=== PATIENT | male | born 1970 | race Caucasian/White ===

== ENCOUNTER 2019-06-18 05:17 | Day surgery (SDC) | payer BC ==
[2019-06-18] MEDS ORDERED: Dextrose 5%-Lactated Ringers 1,000 ML IV SCH (06:00)
[2019-06-18] MEDS ORDERED: fentaNYL 100 MCG/2 ML SDV ONE (07:18)
[2019-06-18] MEDS ORDERED: Midazolam 1 MG/ML 2 ML SDV ONE (07:19)
[2019-06-18] MEDS ORDERED: Propofol 200 MG/20 ML SDV ONE (07:19)
--- NOTE | 2019-06-22 21:31 | OR ---
DATE OF PROCEDURE: 06/18/2019 SURGEON: Reese Shaffer MD PREOPERATIVE DIAGNOSIS: Indications for screening colonoscopy. POSTOPERATIVE DIAGNOSIS: Normal colonoscopic examination. OPERATIVE PROCEDURE: Screening colonoscopy. ANESTHESIA: IV sedation. INDICATION FOR PROCEDURE: This is a 48-year-old presenting for initial screening colonoscopy. He has no personal or family history of colon carcinoma. The plan is to proceed with screening colonoscopy with biopsies and/or polypectomy as indicated. Potential risks including bleeding and perforation were discussed, and the patient wishes to proceed. DETAILS OF PROCEDURE: The patient was taken to the operating room and placed in a left lateral decubitus position. IV sedation was administered, after which the initial digital rectal exam was performed and was unremarkable. Colonoscope was then passed to the level of the cecum. The prep was quite good with there being only a small amount of liquid stool present. To that level, there were no abnormalities, particularly there were no diverticula, no areas of colitis, no polyps or other signs of neoplasia. The scope was then withdrawn, the above findings reconfirmed, and the procedure was then concluded. The patient was taken to the recovery room in satisfactory condition. Recommendation would be to repeat the colonoscopy in 10 years. Reese Shaffer MD /[id number]
== END 2019-06-18 09:25 | disposition home or self-care (01) ==
LOC: JP.SDS 05:17
PROVIDERS: ATTEND Surgery
DX: Z12.11 Encounter for screening for malignant neoplasm of colon (principal); K21.9 Gastro-esophageal reflux disease without esophagitis; Z88.0 Allergy status to penicillin
CPT/HCPCS: J2250; J2704; J3010; J7121